=== PATIENT | female | born 1940 | race African-American/Black ===

== ENCOUNTER 2019-01-14 02:07 | Emergency (ER) | payer MEDICARE, OTHER ==
[2019-01-14 02:54] LABS: Hemoglobin 13.9 g/dL (12.0-16.0); Mean Corpuscular HGB CONC 33.3 g/dL (32.0-36.0); Mean Corpuscular Hemoglobin 24.3 pg (27.0-31.0); Mean Platelet Volume 8.4 fL (7.4-10.4); Platelet Count 257 thou/uL (130-400); RBC Distribution Width 13.4 % (11.5-14.5); Red Blood Cell (RBC) Count 5.73 mill/uL (4.20-5.40); White Blood Cell (WBC) Count 9.2 thou/uL (4.8-10.8)
[2019-01-14 02:58] LABS: Acetaminophen Less than 6.0 mcg/mL (10.0-30.0); Alcohol 145 mg/dL (Less than 10); Salicylate Less than 8.0 mg/dL (15.0-30.0)
[2019-01-14 02:59] LABS: Bilirubin Negative (Negative); Blood, Urine Negative (Negative); Clarity Clear (Clear); Glucose, Urine (Dipstick) 200 mg/dL (Negative); Leukocyte Negative Leu/uL (Negative); Nitrite Negative (Negative); Protein, Urine (Dipstick) Negative (Neg-Trace); Urobilinogen Normal mg/dL (Less than 2)
[2019-01-14 03:02] LABS: ALT (SGPT) 18 U/L (8-55); AST (SGOT) 23 U/L (5-34); Albumin 3.2 g/dL (3.4-4.8); Alkaline Phosphatase 86 U/L (40-150); Anion Gap 16 mmol/L (10-20); BUN (Urea Nitrogen) 25 mg/dL (9.8-20.1); Bilirubin, Total 0.4 mg/dL (0.2-1.2); Calc. Creatinine Clearance 0 mL/min (70-130); Calcium 9.3 mg/dL (7.8-10.44); Carbon Dioxide 24 mmol/L (23-31); Chloride 94 mmol/L (98-107); Estimated GFR-MDRD 67; Glucose 347 mg/dL (83-110); Potassium 3.2 mmol/L (3.5-5.1); Protein, Total 7.2 g/dL (6.0-8.3); Sodium 131 mmol/L (136-145)
[2019-01-14 03:12] LABS: #Basophils 0.1 thou/uL (0.0-0.2); #Eosinphils 0.1 thou/uL (0.0-0.7); #Lymphocytes 2.9 thou/uL (1.20-3.40); #Monocytes 0.6 thou/uL (0.11-0.59); #Neutrophils 5.5 thou/uL (1.40-6.50); %Basophils 1.2 % (0.0-1.0); %Eosinophils 0.9 % (0.0-10.0); %Lymphocytes 31.8 % (21.0-51.0); %Monocytes 6.6 % (0.0-10.0); %Neutrophils 59.6 % (42.0-75.0); MDiff Complete? YES; Microcytosis SLIGHT = 6-15 cells (100X) (0-5/hpf)
[2019-01-14 03:14] LABS: Amphetamine Not Detected (NotDetected); Barbiturates Screen Not Detected (NotDetected); Benzodiazepine Screen Not Detected (NotDetected); Cocaine Metabolite Screen Not Detected (NotDetected); Medtox Control Line Valid? VALID (VALID); Medtox Reader # READER 4; Methadone Not Detected (NotDetected); Methamphetamine Not Detected (NotDetected); Opiate Screen Detected (NotDetected); Oxycodone Screen Not Detected (NotDetected); Phencyclidine (PCP) Not Detected (NotDetected); THC/Cannabinoid Screen Not Detected (NotDetected); Tricyclic Screen Not Detected (NotDetected)
--- NOTE | 2019-01-16 01:07 | EKG ---
Test Reason : Blood Pressure : / mmHG Vent. Rate : 075 BPM Atrial Rate : 075 BPM P-R Int : 334 ms QRS Dur : 098 ms QT Int : 436 ms P-R-T Axes : 078 -21 039 degrees QTc Int : 486 ms Sinus rhythm with 1st degree A-V block with occasional Premature ventricular complexes Inferior infarct , age undetermined Abnormal ECG Confirmed by JEFFREY MAHAJAN ([id number]), supervising editor news reel JUAN ALBERTO TALAVERA ([id number]) on 01/16/2019 1:06:55 AM Referred By: Confirmed By:JEFFREY MAHAJAN
== END 2019-01-14 06:28 | disposition home or self-care (01) ==
LOC: ERS 02:07
DX: F10.129 Alcohol abuse with intoxication, unspecified (principal); I10 Essential (primary) hypertension; E11.9 Type 2 diabetes mellitus without complications; E78.00 Pure hypercholesterolemia, unspecified; F17.210 Nicotine dependence, cigarettes, uncomplicated; F41.9 Anxiety disorder, unspecified; Z79.4 Long term (current) use of insulin; Y90.6 Blood alcohol level of 120-199 mg/100 ml
CPT/HCPCS: 36415; 80053; 80306; 80307; 81003; 84443; 85025; 87086; 93005; 96360

== ENCOUNTER 2022-09-08 12:54 | Inpatient (IN) | payer OTHER, MEDICAID ==
[2022-09-08 13:26] LABS: #Eosinphils 0.1 thou/uL (0.0-0.7); #Lymphocytes 1.7 thou/uL (1.20-3.40); #Monocytes 0.8 thou/uL (0.11-0.59); #Neutrophils 7.8 thou/uL (1.40-6.50); %Basophils 0.2 % (0.0-1.0); %Eosinophils 0.6 % (0.0-10.0); %Lymphocytes 16.6 % (21.0-51.0); %Neutrophils 74.7 % (42.0-75.0); Hemoglobin 12.2 g/dL (12.0-16.0); Mean Corpuscular Hemoglobin 26.1 pg (27.0-31.0); Mean Corpuscular Volume 81.5 fl (78.0-98.0); Mean Platelet Volume 8.7 fL (7.4-10.4); Platelet Count 243 10x3/uL (130-400); RBC Distribution Width 12.5 % (11.5-14.5); Red Blood Cell (RBC) Count 4.66 mill/uL (4.20-5.40); White Blood Cell (WBC) Count 10.5 10x3/uL (4.8-10.8)
[2022-09-08 13:54] LABS: ALT (SGPT) 18 U/L (8-55); AST (SGOT) 21 U/L (5-34); Albumin 3.2 g/dL (3.4-4.8); Alkaline Phosphatase 80 U/L (40-110); Anion Gap 15 mmol/L (10-20); BUN (Urea Nitrogen) 20 mg/dL (9.8-20.1); Bilirubin, Total 1.2 mg/dL (0.2-1.2); Calc. Creatinine Clearance 0 mL/min (70-130); Calcium 9.5 mg/dL (7.8-10.44); Carbon Dioxide 23 mmol/L (23-31); Chloride 101 mmol/L (98-107); Estimated GFR 46; Glucose 311 mg/dL (83-110); Potassium 3.9 mmol/L (3.5-5.1); Protein, Total 7.2 g/dL (5.8-8.1); Sodium 135 mmol/L (136-145)
[2022-09-08] MEDS ORDERED: Guaifenesin DM 100-10/5 ML UDCUP PO PRN (18:09)
[2022-09-08] MEDS ORDERED: Senokot S 8.6-50 MG TAB PO PRN (18:09)
[2022-09-08] MEDS ORDERED: Calcium Carbonate 500 MG ChewTAB PO PRN (18:09)
[2022-09-08] MEDS ORDERED: Ondansetron PF 4 MG/2 ML Vial IVP PRN (18:09)
[2022-09-08] MEDS ORDERED: Acetaminophen 325 MG TAB PO PRN (18:09)
[2022-09-08] MEDS ORDERED: Ondansetron ODT 4 MG TAB PO PRN (18:09)
[2022-09-08] MEDS ORDERED: Dextrose 50% Abboject 50 ML SYRINGE SLOW IVP PRN (18:09)
[2022-09-08] MEDS ORDERED: Dextrose 5% in Water 1,000 ML IV PRN (18:09)
[2022-09-08 19:10] LABS: Magnesium 1.7 mg/dL (1.6-2.6)
[2022-09-08 19:58] VITALS: BMI 36.3
[2022-09-08] MEDS: HumaLOG 300 UNITS/3 ML VIAL SC PRN (20:25)
[2022-09-08] MEDS ORDERED: Magnesium 2 GM/50 ML(in water) 2 GM in Premix Bag 1 BAG IVPB SCH (21:15)
[2022-09-08] MEDS: Sodium Chloride 0.9% 1,000 ML IV SCH (23:25)
[2022-09-09] MEDS: HYDROcodone/Acetaminophen 5/325 mg Tablet PO PRN ×3 (02:09→15:32)
[2022-09-09] MEDS: HumaLOG 300 UNITS/3 ML VIAL SC PRN ×3 (06:09→17:27)
[2022-09-09 07:39] LABS: Anion Gap 13 mmol/L (10-20); BUN (Urea Nitrogen) 14 mg/dL (9.8-20.1); Calc. Creatinine Clearance 97 mL/min (70-130); Calcium 8.8 mg/dL (7.8-10.44); Carbon Dioxide 21 mmol/L (23-31); Chloride 103 mmol/L (98-107); Estimated GFR 76; Glucose 252 mg/dL (83-110); Potassium 3.2 mmol/L (3.5-5.1); Sodium 134 mmol/L (136-145)
[2022-09-09 07:49] LABS: #Eosinphils 0.1 thou/uL (0.0-0.7); #Lymphocytes 2.5 thou/uL (1.20-3.40); #Monocytes 1.1 thou/uL (0.11-0.59); %Basophils 0.1 % (0.0-1.0); %Eosinophils 1.2 % (0.0-10.0); %Lymphocytes 23.5 % (21.0-51.0); %Monocytes 10.3 % (0.0-10.0); %Neutrophils 64.9 % (42.0-75.0); Hemoglobin 11.4 g/dL (12.0-16.0); Mean Corpuscular HGB CONC 31.7 g/dL (32.0-36.0); Mean Corpuscular Hemoglobin 25.7 pg (27.0-31.0); Mean Corpuscular Volume 81.1 fl (78.0-98.0); Mean Platelet Volume 9.3 fL (7.4-10.4); Platelet Count 246 10x3/uL (130-400); RBC Distribution Width 12.4 % (11.5-14.5); Red Blood Cell (RBC) Count 4.43 mill/uL (4.20-5.40); White Blood Cell (WBC) Count 10.8 10x3/uL (4.8-10.8)
[2022-09-09] MEDS: Sodium Chloride 0.9% 1,000 ML IV SCH (12:19)
[2022-09-09] MEDS ORDERED: busPIRone HCl 10 MG TAB PO PRN (12:29)
[2022-09-09] MEDS ORDERED: Potassium Chloride 20 MEQ TAB PO SCH (13:45)
[2022-09-09] MEDS: Apixaban 5 MG TAB PO SCH (21:46)
[2022-09-09] MEDS: Flecainide 50 MG TAB PO SCH (21:46)
[2022-09-09] MEDS: Pregabalin 75 MG CAP PO SCH (21:47)
[2022-09-09] MEDS: Metoprolol Tartrate 100 MG TAB PO SCH (21:47)
[2022-09-09] MEDS: Oxybutynin 5 MG TAB PO SCH (21:47)
[2022-09-09] MEDS: Insulin Glargine 30 UNITS/0.3 ML VIAL SC SCH (21:51)
[2022-09-10] MEDS: Sodium Chloride 0.9% 1,000 ML IV SCH ×2 (02:21→16:49)
[2022-09-10] MEDS: HYDROcodone/Acetaminophen 5/325 mg Tablet PO PRN ×3 (02:22→21:41)
[2022-09-10 06:41] LABS: #Basophils 0.1 thou/uL (0.0-0.2); #Eosinphils 0.2 thou/uL (0.0-0.7); #Lymphocytes 2.3 thou/uL (1.20-3.40); #Monocytes 0.7 thou/uL (0.11-0.59); %Basophils 0.6 % (0.0-1.0); %Eosinophils 1.9 % (0.0-10.0); %Lymphocytes 27.4 % (21.0-51.0); %Monocytes 8.8 % (0.0-10.0); %Neutrophils 61.2 % (42.0-75.0); Hemoglobin 10.8 g/dL (12.0-16.0); Mean Corpuscular HGB CONC 31.9 g/dL (32.0-36.0); Mean Corpuscular Hemoglobin 25.9 pg (27.0-31.0); Mean Corpuscular Volume 81.4 fl (78.0-98.0); Mean Platelet Volume 8.7 fL (7.4-10.4); Platelet Count 244 10x3/uL (130-400); Red Blood Cell (RBC) Count 4.16 mill/uL (4.20-5.40); White Blood Cell (WBC) Count 8.2 10x3/uL (4.8-10.8)
[2022-09-10 07:09] LABS: Anion Gap 7 mmol/L (10-20); BUN (Urea Nitrogen) 10 mg/dL (9.8-20.1); Calc. Creatinine Clearance 111 mL/min (70-130); Calcium 8.2 mg/dL (7.8-10.44); Carbon Dioxide 24 mmol/L (23-31); Chloride 105 mmol/L (98-107); Estimated GFR 88; Glucose 217 mg/dL (83-110); Potassium 3.2 mmol/L (3.5-5.1); Sodium 133 mmol/L (136-145)
[2022-09-10] MEDS: Apixaban 5 MG TAB PO SCH ×2 (08:13→21:41)
[2022-09-10] MEDS: Metoprolol Tartrate 100 MG TAB PO SCH (08:13)
[2022-09-10] MEDS: Flecainide 50 MG TAB PO SCH ×2 (08:13→21:43)
[2022-09-10] MEDS: Amlodipine 5 MG TAB PO SCH (08:15)
[2022-09-10] MEDS: Ferrous Sulfate 325 MG TAB PO SCH (08:15)
[2022-09-10] MEDS: Pregabalin 75 MG CAP PO SCH ×2 (08:15→21:42)
[2022-09-10] MEDS: Clopidogrel Bisulfate 75 MG TAB PO SCH (08:15)
[2022-09-10] MEDS ORDERED: Potassium Chloride 20 MEQ TAB PO SCH (09:15)
[2022-09-10] MEDS: HumaLOG 300 UNITS/3 ML VIAL SC PRN ×3 (12:58→21:47)
[2022-09-10] MEDS: Oxybutynin 5 MG TAB PO SCH (21:40)
[2022-09-10] MEDS: Atorvastatin Calcium 40 MG TAB PO SCH (21:40)
[2022-09-10] MEDS: Melatonin 3 MG TAB PO PRN (21:41)
[2022-09-10] MEDS: Insulin Glargine 30 UNITS/0.3 ML VIAL SC SCH (21:44)
[2022-09-11 06:51] LABS: #Basophils 0.1 thou/uL (0.0-0.2); #Eosinphils 0.2 thou/uL (0.0-0.7); #Lymphocytes 2.2 thou/uL (1.20-3.40); #Monocytes 0.7 thou/uL (0.11-0.59); #Neutrophils 4.3 thou/uL (1.40-6.50); %Basophils 0.8 % (0.0-1.0); %Eosinophils 2.4 % (0.0-10.0); %Lymphocytes 29.1 % (21.0-51.0); %Monocytes 8.9 % (0.0-10.0); %Neutrophils 58.7 % (42.0-75.0); Hemoglobin 11.8 g/dL (12.0-16.0); Mean Corpuscular HGB CONC 31.5 g/dL (32.0-36.0); Mean Corpuscular Hemoglobin 26.4 pg (27.0-31.0); Mean Corpuscular Volume 83.9 fl (78.0-98.0); Platelet Count 186 10x3/uL (130-400); RBC Distribution Width 12.4 % (11.5-14.5); Red Blood Cell (RBC) Count 4.44 mill/uL (4.20-5.40); White Blood Cell (WBC) Count 7.4 10x3/uL (4.8-10.8)
[2022-09-11 07:03] LABS: Anion Gap 12 mmol/L (10-20); BUN (Urea Nitrogen) 7 mg/dL (9.8-20.1); Calc. Creatinine Clearance 115 mL/min (70-130); Calcium 8.5 mg/dL (7.8-10.44); Carbon Dioxide 16 mmol/L (23-31); Chloride 109 mmol/L (98-107); Estimated GFR 88; Glucose 209 mg/dL (83-110); Potassium 3.8 mmol/L (3.5-5.1); Sodium 133 mmol/L (136-145)
[2022-09-11] MEDS: Clopidogrel Bisulfate 75 MG TAB PO SCH (08:42)
[2022-09-11] MEDS: Flecainide 50 MG TAB PO SCH ×2 (08:42→20:27)
[2022-09-11] MEDS: Ferrous Sulfate 325 MG TAB PO SCH (08:42)
[2022-09-11] MEDS: Apixaban 5 MG TAB PO SCH ×2 (08:44→20:28)
[2022-09-11] MEDS: Amlodipine 5 MG TAB PO SCH (08:44)
[2022-09-11] MEDS: Pregabalin 75 MG CAP PO SCH ×2 (08:44→20:27)
[2022-09-11] MEDS: Sodium Chloride 0.9% 1,000 ML IV SCH ×2 (08:46→22:13)
[2022-09-11] MEDS: HYDROcodone/Acetaminophen 5/325 mg Tablet PO PRN ×2 (08:49→19:11)
[2022-09-11] MEDS: HumaLOG 300 UNITS/3 ML VIAL SC PRN ×3 (12:39→20:47)
[2022-09-11] MEDS: Oxybutynin 5 MG TAB PO SCH (20:29)
[2022-09-11] MEDS: Atorvastatin Calcium 40 MG TAB PO SCH (20:29)
[2022-09-11] MEDS: Insulin Glargine 30 UNITS/0.3 ML VIAL SC SCH (20:44)
[2022-09-11] MEDS: Melatonin 3 MG TAB PO PRN (22:09)
[2022-09-12 04:20] LABS: #Eosinphils 0.2 thou/uL (0.0-0.7); #Lymphocytes 2.3 thou/uL (1.20-3.40); #Monocytes 0.7 thou/uL (0.11-0.59); #Neutrophils 4.2 thou/uL (1.40-6.50); %Basophils 0.3 % (0.0-1.0); %Eosinophils 2.7 % (0.0-10.0); %Lymphocytes 30.9 % (21.0-51.0); %Monocytes 9.1 % (0.0-10.0); Mean Corpuscular HGB CONC 31.9 g/dL (32.0-36.0); Mean Corpuscular Hemoglobin 25.8 pg (27.0-31.0); Mean Platelet Volume 8.3 fL (7.4-10.4); Platelet Count 249 10x3/uL (130-400); RBC Distribution Width 12.2 % (11.5-14.5); Red Blood Cell (RBC) Count 4.64 mill/uL (4.20-5.40); White Blood Cell (WBC) Count 7.4 10x3/uL (4.8-10.8)
[2022-09-12 04:37] LABS: Anion Gap 11 mmol/L (10-20); BUN (Urea Nitrogen) 5 mg/dL (9.8-20.1); Calc. Creatinine Clearance 118 mL/min (70-130); Calcium 8.6 mg/dL (7.8-10.44); Carbon Dioxide 22 mmol/L (23-31); Chloride 103 mmol/L (98-107); Estimated GFR 89; Glucose 177 mg/dL (83-110); Potassium 3.2 mmol/L (3.5-5.1); Sodium 133 mmol/L (136-145)
[2022-09-12] MEDS: Ferrous Sulfate 325 MG TAB PO SCH (09:00)
[2022-09-12] MEDS: Amlodipine 5 MG TAB PO SCH (09:00)
[2022-09-12] MEDS: Pregabalin 75 MG CAP PO SCH ×2 (09:00→21:25)
[2022-09-12] MEDS: Apixaban 5 MG TAB PO SCH ×2 (09:00→21:25)
[2022-09-12] MEDS: Clopidogrel Bisulfate 75 MG TAB PO SCH (09:00)
[2022-09-12] MEDS: Flecainide 50 MG TAB PO SCH ×2 (09:00→21:26)
[2022-09-12] MEDS: Sodium Chloride 0.9% 1,000 ML IV SCH ×2 (09:04→21:28)
[2022-09-12] MEDS ORDERED: Potassium Chloride 20 MEQ TAB PO SCH (09:45)
[2022-09-12] MEDS: HYDROcodone/Acetaminophen 5/325 mg Tablet PO PRN ×2 (13:18→21:27)
[2022-09-12] MEDS: HumaLOG 300 UNITS/3 ML VIAL SC PRN ×3 (13:19→21:31)
[2022-09-12] MEDS: Atorvastatin Calcium 40 MG TAB PO SCH (21:25)
[2022-09-12] MEDS: Melatonin 3 MG TAB PO PRN (21:26)
[2022-09-12] MEDS: Oxybutynin 5 MG TAB PO SCH (21:26)
[2022-09-12] MEDS: Insulin Glargine 30 UNITS/0.3 ML VIAL SC SCH (21:27)
[2022-09-12] MEDS ORDERED: cloNIDine 0.1 MG TAB PO SCH (22:15)
[2022-09-13] MEDS ORDERED: hydrALAZINE 20 MG/ML VIAL SLOW IVP SCH (00:30)
[2022-09-13] MEDS: HYDROcodone/Acetaminophen 5/325 mg Tablet PO PRN ×2 (05:35→21:07)
[2022-09-13] MEDS: HumaLOG 300 UNITS/3 ML VIAL SC PRN ×4 (06:23→21:12)
[2022-09-13 08:32] LABS: Anion Gap 12 mmol/L (10-20); BUN (Urea Nitrogen) 6 mg/dL (9.8-20.1); Calc. Creatinine Clearance 113 mL/min (70-130); Calcium 8.6 mg/dL (7.8-10.44); Carbon Dioxide 22 mmol/L (23-31); Chloride 104 mmol/L (98-107); Estimated GFR 88; Glucose 224 mg/dL (83-110); Potassium 3.7 mmol/L (3.5-5.1); Sodium 134 mmol/L (136-145)
[2022-09-13] MEDS: Ferrous Sulfate 325 MG TAB PO SCH (08:58)
[2022-09-13] MEDS: Clopidogrel Bisulfate 75 MG TAB PO SCH (08:58)
[2022-09-13] MEDS: Flecainide 50 MG TAB PO SCH ×2 (08:58→21:06)
[2022-09-13] MEDS: Pregabalin 75 MG CAP PO SCH ×2 (08:58→21:05)
[2022-09-13] MEDS: Amlodipine 5 MG TAB PO SCH (08:59)
[2022-09-13] MEDS: Apixaban 5 MG TAB PO SCH ×2 (08:59→21:07)
[2022-09-13] MEDS: Sodium Chloride 0.9% 1,000 ML IV SCH (12:10)
[2022-09-13] MEDS ORDERED: Amlodipine 5 MG TAB PO SCH (12:15)
[2022-09-13] MEDS: Melatonin 3 MG TAB PO PRN (21:05)
[2022-09-13] MEDS: Lisinopril 10 MG TAB PO SCH (21:06)
[2022-09-13] MEDS: Oxybutynin 5 MG TAB PO SCH (21:06)
[2022-09-13] MEDS: Atorvastatin Calcium 40 MG TAB PO SCH (21:06)
[2022-09-13] MEDS: Insulin Glargine 30 UNITS/0.3 ML VIAL SC SCH (21:07)
[2022-09-14] MEDS: Sodium Chloride 0.9% 1,000 ML IV SCH ×2 (03:19→20:59)
[2022-09-14] MEDS: HumaLOG 300 UNITS/3 ML VIAL SC PRN ×4 (05:53→20:56)
[2022-09-14 07:44] LABS: Anion Gap 12 mmol/L (10-20); BUN (Urea Nitrogen) 7 mg/dL (9.8-20.1); Calc. Creatinine Clearance 122 mL/min (70-130); Calcium 8.5 mg/dL (7.8-10.44); Carbon Dioxide 20 mmol/L (23-31); Chloride 105 mmol/L (98-107); Estimated GFR 90; Glucose 229 mg/dL (83-110); Potassium 3.6 mmol/L (3.5-5.1); Sodium 133 mmol/L (136-145)
[2022-09-14] MEDS: Flecainide 50 MG TAB PO SCH ×2 (09:05→20:50)
[2022-09-14] MEDS: Ferrous Sulfate 325 MG TAB PO SCH (09:05)
[2022-09-14] MEDS: Clopidogrel Bisulfate 75 MG TAB PO SCH (09:05)
[2022-09-14] MEDS: Pregabalin 75 MG CAP PO SCH ×2 (09:05→20:50)
[2022-09-14] MEDS: Apixaban 5 MG TAB PO SCH ×2 (09:06→20:50)
[2022-09-14] MEDS: Lisinopril 10 MG TAB PO SCH ×2 (09:06→20:50)
[2022-09-14] MEDS: Amlodipine 10 MG TAB PO SCH (09:06)
[2022-09-14] MEDS: HYDROcodone/Acetaminophen 5/325 mg Tablet PO PRN ×2 (09:10→20:49)
[2022-09-14] MEDS: Melatonin 3 MG TAB PO PRN (20:49)
[2022-09-14] MEDS: Oxybutynin 5 MG TAB PO SCH (20:50)
[2022-09-14] MEDS: Atorvastatin Calcium 40 MG TAB PO SCH (20:50)
[2022-09-14] MEDS: Insulin Glargine 30 UNITS/0.3 ML VIAL SC SCH (20:51)
[2022-09-15] MEDS: HYDROcodone/Acetaminophen 5/325 mg Tablet PO PRN ×2 (00:51→11:28)
[2022-09-15] MEDS: HumaLOG 300 UNITS/3 ML VIAL SC PRN ×3 (05:33→21:09)
[2022-09-15 06:41] LABS: Anion Gap 12 mmol/L (10-20); BUN (Urea Nitrogen) 7 mg/dL (9.8-20.1); Calc. Creatinine Clearance 120 mL/min (70-130); Calcium 9.1 mg/dL (7.8-10.44); Carbon Dioxide 24 mmol/L (23-31); Chloride 100 mmol/L (98-107); Estimated GFR 89; Glucose 229 mg/dL (83-110); Potassium 3.5 mmol/L (3.5-5.1); Sodium 132 mmol/L (136-145)
[2022-09-15] MEDS: Lisinopril 10 MG TAB PO SCH ×2 (08:20→21:08)
[2022-09-15] MEDS: Flecainide 50 MG TAB PO SCH ×2 (08:20→21:08)
[2022-09-15] MEDS: Ferrous Sulfate 325 MG TAB PO SCH (08:21)
[2022-09-15] MEDS: Pregabalin 75 MG CAP PO SCH ×2 (08:21→21:08)
[2022-09-15] MEDS: Amlodipine 10 MG TAB PO SCH (08:21)
[2022-09-15] MEDS: Sodium Chloride 0.9% 1,000 ML IV SCH (11:25)
[2022-09-15] MEDS: Clopidogrel Bisulfate 75 MG TAB PO SCH (16:40)
[2022-09-15] MEDS: Apixaban 5 MG TAB PO SCH (16:40)
[2022-09-15] MEDS: Glimepiride 4 MG TAB PO SCH (21:08)
[2022-09-15] MEDS: Oxybutynin 5 MG TAB PO SCH (21:08)
[2022-09-15] MEDS: Atorvastatin Calcium 40 MG TAB PO SCH (21:08)
[2022-09-15] MEDS: Insulin Glargine 30 UNITS/0.3 ML VIAL SC SCH (21:09)
[2022-09-15 21:58] LABS: Bilirubin Negative (Negative); Blood, Urine 3+ (Negative); CAUTI Indications for Culture Acute Hematuria; Clarity Turbid (Clear); Glucose, Urine (Dipstick) >=1000 mg/dL (Negative); Ketone, Urine Negative (Negative); Leukocyte 500 Leu/uL (Negative); Nitrite Negative (Negative); Protein, Urine (Dipstick) 20 mg/dL (Neg-Trace); RBC/HPF Greater than 50 HPF (0-3); Specific Gravity, Urine 1.009 (1.002-1.036); Squamous Epithelial 0-3 HPF (0-3); Urobilinogen Normal mg/dL (Less than 2); WBC/HPF Greater than 50 HPF (0-3); pH, Urine 6.5 (5.0-9.0)
[2022-09-15 21:59] LABS: Bacteria/HPF 1+ HPF (None Seen)
[2022-09-15 22:00] LABS: Urine Culture Reflex Yes Yes
[2022-09-16] MEDS: HYDROcodone/Acetaminophen 5/325 mg Tablet PO PRN ×2 (00:27→21:30)
[2022-09-16] MEDS: Melatonin 3 MG TAB PO PRN ×2 (00:27→21:29)
[2022-09-16 06:17] LABS: #Basophils 0.1 thou/uL (0.0-0.2); #Eosinphils 0.2 thou/uL (0.0-0.7); #Monocytes 0.8 thou/uL (0.11-0.59); #Neutrophils 5.1 thou/uL (1.40-6.50); %Basophils 0.9 % (0.0-1.0); %Eosinophils 2.5 % (0.0-10.0); %Lymphocytes 24.6 % (21.0-51.0); %Monocytes 9.2 % (0.0-10.0); %Neutrophils 62.8 % (42.0-75.0); Hemoglobin 11.7 g/dL (12.0-16.0); Mean Corpuscular HGB CONC 32.2 g/dL (32.0-36.0); Mean Corpuscular Hemoglobin 25.9 pg (27.0-31.0); Mean Corpuscular Volume 80.3 fl (78.0-98.0); Mean Platelet Volume 8.5 fL (7.4-10.4); Platelet Count 281 10x3/uL (130-400); Red Blood Cell (RBC) Count 4.53 mill/uL (4.20-5.40); White Blood Cell (WBC) Count 8.2 10x3/uL (4.8-10.8)
[2022-09-16] MEDS: HumaLOG 300 UNITS/3 ML VIAL SC PRN ×2 (06:18→17:54)
[2022-09-16 06:36] LABS: Anion Gap 15 mmol/L (10-20); BUN (Urea Nitrogen) 7 mg/dL (9.8-20.1); Calc. Creatinine Clearance 115 mL/min (70-130); Calcium 8.9 mg/dL (7.8-10.44); Carbon Dioxide 20 mmol/L (23-31); Chloride 102 mmol/L (98-107); Estimated GFR 88; Glucose 167 mg/dL (83-110); Sodium 133 mmol/L (136-145)
[2022-09-16] MEDS: Magnesium Oxide 400 MG TAB PO SCH (09:21)
[2022-09-16] MEDS: Lisinopril 10 MG TAB PO SCH ×2 (09:21→21:29)
[2022-09-16] MEDS: Flecainide 50 MG TAB PO SCH ×2 (09:21→21:32)
[2022-09-16] MEDS: Amlodipine 10 MG TAB PO SCH (09:21)
[2022-09-16] MEDS: Ferrous Sulfate 325 MG TAB PO SCH (09:21)
[2022-09-16] MEDS: Glimepiride 4 MG TAB PO SCH ×2 (09:21→21:29)
[2022-09-16] MEDS: Pregabalin 75 MG CAP PO SCH ×2 (09:21→21:30)
[2022-09-16] MEDS: Atorvastatin Calcium 40 MG TAB PO SCH (21:29)
[2022-09-16] MEDS: Oxybutynin 5 MG TAB PO SCH (21:29)
[2022-09-16] MEDS: Insulin Glargine 30 UNITS/0.3 ML VIAL SC SCH (21:31)
[2022-09-17 07:07] LABS: Hemoglobin 11.7 g/dL (12.0-16.0); Platelet Count 307 10x3/uL (130-400)
[2022-09-17 07:34] LABS: Anion Gap 15 mmol/L (10-20); BUN (Urea Nitrogen) 8 mg/dL (9.8-20.1); Calc. Creatinine Clearance 117 mL/min (70-130); Calcium 8.9 mg/dL (7.8-10.44); Carbon Dioxide 21 mmol/L (23-31); Chloride 102 mmol/L (98-107); Estimated GFR 89; Glucose 130 mg/dL (83-110); Potassium 3.7 mmol/L (3.5-5.1); Sodium 134 mmol/L (136-145)
[2022-09-17] MEDS: Lisinopril 10 MG TAB PO SCH (08:40)
[2022-09-17] MEDS: Ferrous Sulfate 325 MG TAB PO SCH (08:40)
[2022-09-17] MEDS: Pregabalin 75 MG CAP PO SCH (08:40)
[2022-09-17] MEDS: Amlodipine 10 MG TAB PO SCH (08:40)
[2022-09-17] MEDS: Flecainide 50 MG TAB PO SCH (08:40)
[2022-09-17] MEDS: Glimepiride 4 MG TAB PO SCH (08:40)
[2022-09-17] MEDS: Magnesium Oxide 400 MG TAB PO SCH (08:41)
[2022-09-17] MEDS: HumaLOG 300 UNITS/3 ML VIAL SC PRN (12:36)
[2022-09-17 14:47] VITALS: BP 151/73; TEMP 98.1
== END 2022-09-17 14:43 | DRG 563 ==
LOC: ERS 12:54 → T4-B 17:35 → OBSVTOIN 09-10 16:46
PROVIDERS: ADMIT Physician Assistant; ATTEND Family Medicine
PROC: 2W3QX1Z Immobilization of Right Lower Leg using Splint (ICD-10-PCS; principal; 2022-09-10)
DX: S82.831A Other fracture of upper and lower end of right fibula, initial encounter for closed fracture (principal); N17.9 Acute kidney failure, unspecified; Z20.822 Contact with and (suspected) exposure to COVID-19; E11.51 Type 2 diabetes mellitus with diabetic peripheral angiopathy without gangrene; I10 Essential (primary) hypertension; I48.0 Paroxysmal atrial fibrillation; E87.6 Hypokalemia; G47.00 Insomnia, unspecified; E78.00 Pure hypercholesterolemia, unspecified; F41.9 Anxiety disorder, unspecified; R31.0 Gross hematuria; F17.210 Nicotine dependence, cigarettes, uncomplicated; W18.30XA Fall on same level, unspecified, initial encounter; Y92.009 Unspecified place in unspecified non-institutional (private) residence as the place of occurrence of the external cause; Z79.82 Long term (current) use of aspirin; Z79.84 Long term (current) use of oral hypoglycemic drugs; Z79.4 Long term (current) use of insulin; Z79.899 Other long term (current) drug therapy; Z79.02 Long term (current) use of antithrombotics/antiplatelets
CPT/HCPCS: 29515; 36415; 36416; 80048; 80053; 81001; 83735; 85014; 85018; 85025; 85049; 87086; 87811; 93005; 96365; G0378; J0360; J1815; J3475; J7050; U0003; U0005

== ENCOUNTER 2023-11-20 16:46 | Inpatient (IN) | payer MEDICARE, MEDICAID ==
[2023-11-20] MEDS ORDERED: Ondansetron PF 4 MG/2 ML Vial ONE (17:01)
[2023-11-20 17:38] LABS: #Basophils 0.05 10x3/uL (0.0-0.2); %Basophils 0.6 % (0.0-1.0); %Eosinophils 0.5 % (0.0-10.0); %Lymphocytes 18.2 % (21.0-51.0); %Monocytes 7.9 % (0.0-10.0); %Neutrophils 72.4 % (42.0-75.0); Hemoglobin 13.3 g/dL (12.0-16.0); Mean Corpuscular HGB CONC 30.9 g/dL (32.0-36.0); Mean Corpuscular Hemoglobin 23.5 pg (27.0-31.0); Mean Corpuscular Volume 76.1 fL (78.0-98.0); Mean Platelet Volume 9.8 fL (7.4-10.4); Platelet Count 277 10x3/uL (130-400); RBC Distribution Width 19.4 % (11.5-14.5); Red Blood Cell (RBC) Count 5.65 mill/uL (4.20-5.40)
[2023-11-20 17:51] LABS: INR-International Normal Ratio 1.4; PTT 36.1 sec (22.9-36.1); Prothrombin Time 17.5 sec (12.0-14.7)
[2023-11-20 17:59] LABS: ALT (SGPT) 22 U/L (8-55); AST (SGOT) 30 U/L (5-34); Albumin 2.8 g/dL (3.4-4.8); Alkaline Phosphatase 94 U/L (40-110); Anion Gap 17 mmol/L (10-20); BUN (Urea Nitrogen) 19 mg/dL (9.8-20.1); Bilirubin, Total 0.8 mg/dL (0.2-1.2); Calc. Creatinine Clearance 0 mL/min (70-130); Calcium 9.2 mg/dL (7.8-10.44); Carbon Dioxide 25 mmol/L (23-31); Chloride 99 mmol/L (98-107); Estimated GFR 31; Glucose 214 mg/dL (83-110); Lipase 13 U/L (8-78); Magnesium 1.9 mg/dL (1.6-2.6); Protein, Total 6.8 g/dL (5.8-8.1); Sodium 137 mmol/L (136-145)
[2023-11-20 18:03] LABS: Troponin I 0.031 ng/mL (< 0.028)
[2023-11-20] MEDS ORDERED: Glucagon 1 MG/ML KIT IM PRN (18:28)
[2023-11-20] MEDS ORDERED: Dextrose 5% in Water 1,000 ML IV PRN (18:28)
[2023-11-20] MEDS ORDERED: Dextrose 50% Abboject 50 ML SYRINGE SLOW IVP PRN (18:28)
[2023-11-20] MEDS ORDERED: Acetaminophen 650 MG Suppository PR PRN (18:28)
[2023-11-20 18:51] LABS: Base Excess 1.6 mEq/L (-2.0 to +3.0); Calcium, Ionized (venous) 1.09 mmol/L (1.16-1.32); Chloride (VBG) 98 mmol/L (98-106); Hematocrit-VBG 42 % (36.0-47.0); Hemoglobin (Hb) 14.2 g/dL (11.7-16.1); Potassium (VBG) 4.04 mmol/L (3.70-5.30); Sodium 138 mmol/L (133-146); pH (venous) 7.355 (7.32-7.43)
[2023-11-20] MEDS ORDERED: Aspirin Chewable 81 MG TAB ONE (18:54)
[2023-11-20] MEDS: Atorvastatin Calcium 40 MG TAB PO SCH (21:09)
[2023-11-20] MEDS: Sodium Chloride 0.9% 1,000 ML IV SCH (21:09)
[2023-11-20] MEDS: Famotidine 20 MG TAB PO SCH (21:09)
[2023-11-20] MEDS: Magnesium 2 GM/50 ML(in water) 2 GM in Premix 1 BAG IVPB SCH (21:10)
[2023-11-20] MEDS: HumaLOG 300 UNITS/3 ML VIAL SC PRN (21:10)
[2023-11-20 21:48] LABS: Hemoglobin A1c 8.8 % (4.0-6.0)
[2023-11-20 21:55] LABS: Troponin I 0.038 ng/mL (< 0.028)
[2023-11-20 22:03] LABS: Bilirubin Negative (Negative); Blood, Urine Negative (Negative); Glucose, Urine (Dipstick) Negative (Negative); Ketone, Urine Negative (Negative); Leukocyte Negative (Negative); Nitrite Negative (Negative); Protein, Urine (Dipstick) Negative (Neg-Trace); Specific Gravity, Urine 1.015 (1.005-1.030)
[2023-11-20 22:05] LABS: Clarity Clear (Clear)
[2023-11-20 22:09] LABS: CAUTI Indications for Culture Alt mental st,lethar; Calcium Oxalate Crystals Rare HPF (None Seen); RBC/HPF 0-3 HPF (0-3); WBC/HPF 0-3 HPF (0-3)
[2023-11-20 22:17] LABS: Bacteria/HPF 1+ HPF (None Seen)
[2023-11-20 22:18] LABS: Urine Culture Reflex No No
[2023-11-20] MEDS: Acetaminophen 325 MG TAB PO PRN (22:26)
[2023-11-20] MEDS: HYDROcodone/Acetaminophen 5/325 mg Tablet PO PRN (22:54)
[2023-11-20 22:58] VITALS: BMI 31.8
[2023-11-20] MEDS ORDERED: Nitroglycerin 0.4 MG TAB (25 Tab Bottle) SL PRN (23:05)
[2023-11-21 01:08] LABS: Troponin I 0.032 ng/mL (< 0.028)
[2023-11-21 05:17] LABS: #Basophils 0.04 10x3/uL (0.0-0.2); %Basophils 0.5 % (0.0-1.0); %Eosinophils 1.5 % (0.0-10.0); %Monocytes 9.7 % (0.0-10.0); Hemoglobin 11.9 g/dL (12.0-16.0); Mean Corpuscular HGB CONC 31.3 g/dL (32.0-36.0); Mean Corpuscular Hemoglobin 23.7 pg (27.0-31.0); Mean Corpuscular Volume 75.5 fL (78.0-98.0); Mean Platelet Volume 10.5 fL (7.4-10.4); Platelet Count 249 10x3/uL (130-400); RBC Distribution Width 19.3 % (11.5-14.5); Red Blood Cell (RBC) Count 5.03 mill/uL (4.20-5.40)
[2023-11-21] MEDS: HumaLOG 300 UNITS/3 ML VIAL SC PRN (05:33)
[2023-11-21 06:01] LABS: Anion Gap 13 mmol/L (10-20); BUN (Urea Nitrogen) 15 mg/dL (9.8-20.1); Calc. Creatinine Clearance 64 mL/min (70-130); Calcium 8.3 mg/dL (7.8-10.44); Carbon Dioxide 25 mmol/L (23-31); Cardiac Risk 2.7 (Less than 4.5); Chloride 103 mmol/L (98-107); Cholesterol 86 mg/dl (< 200 Desired); Estimated GFR 54; Glucose 245 mg/dL (83-110); HDL Cholesterol 32 mg/dL (>60 Neg Risk); LDL Cholesterol, Calculated 35 mg/dL; Potassium 3.3 mmol/L (3.5-5.1); Sodium 138 mmol/L (136-145); Triglycerides 96 mg/dL (Less than 150)
[2023-11-21] MEDS ORDERED: Metoprolol Tartrate 100 MG TAB PO SCH (09:00)
[2023-11-21] MEDS: Potassium Chloride 20 MEQ TAB PO SCH (09:33)
[2023-11-21] MEDS: Aspirin 81 mg Enteric Coated Tablet PO SCH (09:33)
[2023-11-21] MEDS: Metoprolol Tartrate 50 MG TAB PO SCH ×2 (09:49→18:33)
[2023-11-21] MEDS: Lisinopril 5 MG TAB PO SCH (18:31)
[2023-11-22 04:30] LABS: #Basophils 0.04 10x3/uL (0.0-0.2); %Basophils 0.6 % (0.0-1.0); %Eosinophils 2.1 % (0.0-10.0); %Lymphocytes 33.6 % (21.0-51.0); %Monocytes 9.7 % (0.0-10.0); %Neutrophils 53.7 % (42.0-75.0); Hematocrit 40.6 % (36.0-47.0); Hemoglobin 12.8 g/dL (12.0-16.0); Mean Corpuscular HGB CONC 31.5 g/dL (32.0-36.0); Mean Corpuscular Hemoglobin 23.7 pg (27.0-31.0); Mean Corpuscular Volume 75.2 fL (78.0-98.0); Mean Platelet Volume 9.9 fL (7.4-10.4); Platelet Count 244 10x3/uL (130-400); RBC Distribution Width 18.6 % (11.5-14.5)
[2023-11-22 05:03] LABS: Anion Gap 11 mmol/L (10-20); BUN (Urea Nitrogen) 8 mg/dL (9.8-20.1); Calc. Creatinine Clearance 88 mL/min (70-130); Calcium 8.7 mg/dL (7.8-10.44); Carbon Dioxide 28 mmol/L (23-31); Chloride 98 mmol/L (98-107); Estimated GFR 80; Glucose 193 mg/dL (83-110); Potassium 3.4 mmol/L (3.5-5.1); Sodium 134 mmol/L (136-145)
[2023-11-22 08:12] VITALS: BP 213/81; TEMP 97.9
[2023-11-22] MEDS: hydrALAZINE 20 MG/ML VIAL SLOW IVP SCH (08:44)
[2023-11-22] MEDS: Apixaban 5 MG TAB PO SCH (08:44)
[2023-11-22] MEDS: NIFEdipine XL 60 MG ER.TAB PO SCH (08:45)
[2023-11-22] MEDS: Potassium Chloride 20 MEQ TAB PO SCH (08:45)
[2023-11-23] MEDS ORDERED: NIFEdipine XL 60 MG ER.TAB PO SCH (09:00)
== END 2023-11-22 10:50 | disposition left against medical advice (07) | DRG 69 ==
LOC: ERS 16:46 → 2SE 18:28 → OBSVTOIN 23:03
PROVIDERS: ADMIT Internal Medicine; ATTEND Internal Medicine
DX: G45.9 Transient cerebral ischemic attack, unspecified (principal); I50.22 Chronic systolic (congestive) heart failure; N17.9 Acute kidney failure, unspecified; E78.00 Pure hypercholesterolemia, unspecified; I11.0 Hypertensive heart disease with heart failure; F17.210 Nicotine dependence, cigarettes, uncomplicated; E11.65 Type 2 diabetes mellitus with hyperglycemia; I48.0 Paroxysmal atrial fibrillation; I65.22 Occlusion and stenosis of left carotid artery; R79.89 Other specified abnormal findings of blood chemistry; I44.0 Atrioventricular block, first degree; Z79.01 Long term (current) use of anticoagulants; Z79.899 Other long term (current) drug therapy; Z79.84 Long term (current) use of oral hypoglycemic drugs; Z79.4 Long term (current) use of insulin; Z79.82 Long term (current) use of aspirin
CPT/HCPCS: 36415; 36416; 70450; 70551; 71045; 80048; 80053; 80061; 81001; 82010; 82805; 83036; 83690; 83735; 83880; 84443; 84484; 85025; 85610; 85730; 93005; 93306; 93880; 94760; 97139; J0360; J1815; J2405; J3475; J7050